=== PATIENT | female | born 1985 | race Caucasian/White ===

== ENCOUNTER 2017-10-20 23:19 | Emergency (ER) | payer BC ==
[~2017-10-20] VITALS: Ht 167.6 cm; Wt 61.2 kg
[~2017-10-20 23:19] MED LIST: ALDACTONE100 MG PO; DOXYCYCLINE 10100 M1 PO; TRI-LO-SPRINTE1 EACH; VICODIN ES TAB1 EACH
[2017-10-20] MEDS ORDERED: LEXAPRO 10 MG T10 M2 PO (23:24)
[2017-10-21] MEDS ORDERED: IBU600 MG PO (00:14)
[2017-10-21] MEDS ORDERED: ROBAXIN500 MG PO (00:14)
[2017-10-21 00:23] VITALS: BP 108/64
== END 2017-10-21 00:24 | disposition home or self-care (01) ==
LOC: M.ERS 23:19
DX: S46.811A Strain of other muscles, fascia and tendons at shoulder and upper arm level, right arm, initial encounter (principal); S80.11XA Contusion of right lower leg, initial encounter; V29.9XXA Motorcycle rider (driver) (passenger) injured in unspecified traffic accident, initial encounter; Y93.55 Activity, bike riding; Y92.89 Other specified places as the place of occurrence of the external cause; Y99.8 Other external cause status